=== PATIENT | female | born 1975 | race Asian ===

== ENCOUNTER 2017-10-22 22:35 | Emergency (ER) | payer OTHER ==
[2017-10-22] MEDS ORDERED: RACEPINEPHRINE IH SOL 2.25% 11.25 MG/0.5 ML VIAL NEB ONE (22:40)
[2017-10-22 22:44] VITALS: BMI 29.2
[2017-10-22] MEDS ORDERED: methylPREDNISolone NA SUCC 125 MG/2 ML VIAL ONE (22:47)
[2017-10-22] MEDS ORDERED: methylPREDNISolone NA SUCC 125 MG/2 ML VIAL IVPB ONE (22:47)
[2017-10-22] MEDS ORDERED: MAGNESIUM SULF 50% (8.12 MEQ/2 ML-1 GM VIAL) IVPB ONE (22:48)
[2017-10-22] MEDS ORDERED: FAMOTIDINE 20 MG/50 ML IVPB 20 MG/50 ML MG IVPB ONE (22:48)
[2017-10-22] MEDS ORDERED: SODIUM CHLORIDE 0.9% 500 ML INFUS.BAG IV ONE (22:48)
[2017-10-22] MEDS ORDERED: RACEPINEPHRINE IH SOL 2.25% 11.25 MG/0.5 ML VIAL IH ONE (22:48)
[2017-10-22] MEDS ORDERED: MAGNESIUM SULF 50% (8.12 MEQ/2 ML-1 GM VIAL) ONE (22:52)
--- NOTE | 2017-10-22 22:56 | PDOC ---
History of Present Illness - General History Source: Patient Exam Limitations: No Limitations - History of Present Illness Initial Comments: 10/23/17 00:25 Patient is a 42 year old female with a significant past medical history of Diabetes, who presents to the ED with complaints of difficulty breathing that began just prior to arrival. Patient reports experiencing gradual onset of difficulty breathing that she states occurs every year due to allergies. She reports experiencing associated wheezing, stating she took singular and claritin for shortness of breath with minimal relief, prompting her to come into the ED for further evaluation. Denies chest pain, Coughing. Denies nausea, vomiting. Denies contact with sick individuals, out of state travelling. Denies any other symptoms. Allergies: None Social history: Lives with daughter. No smoking. No alcohol. No illicit drugs. Surgical history: None PMD: dr. Huggins [employer]: Dr. Quiros <Skyler Nelson - Last Filed: 10/23/17 00:26> <Michelle Dunbar - Last Filed: 10/23/17 00:55> - General Chief Complaint: Wheezing Stated Complaint: ASTHMA Time Seen by Provider: 10/22/17 22:41 Past History <Skyler Nelson - Last Filed: 10/23/17 00:26> - Suicide/Smoking/Psychosocial Hx Smoking History: Never smoked Have you smoked in the past 12 months: No Information on smoking cessation initiated: No Hx Alcohol Use: No Drug/Substance Use Hx: No <Michelle Dunbar - Last Filed: 10/23/17 00:55> - Past Medical History Allergies/Adverse Reactions: Allergies Allergy/AdvReac Type Severity Reaction Status Date / Time No Known Allergies Allergy Verified 10/22/17 22:43 Home Medications: Ambulatory Orders Budesonide/Formeterol Fumarate [SYMBICORT 160/4.5mcg -] 1 puff IH DAILY Canagliflozin [Invokana] 100 mg PO DAILY 10/22/17 Fluticasone Propionate [Flonase Allergy Relief] 15.8 ml NS DAILY 10/22/17 Loratadine [Claritin] 10 mg PO DAILY 10/22/17 Montelukast Sodium [Singulair] 10 mg PO DAILY 10/22/17 Olopatadine HCl [Patanol] 1 drop OP DAILY 10/22/17 Salmeterol/Fluticasone [Advair 100Mcg/50Mcg -] 1 puff IH DAILY 10/22/17 Topiramate [Topamax] 25 mg PO DAILY 10/22/17 metFORMIN HCL [Glucophage -] 500 mg PO BID 10/22/17 Albuterol Sulfate Inhaler - [Ventolin Hfa Inhaler -] 1 - 2 inh PO Q4H #1 inhaler 10/23/17 Diphenhydramine HCl [Benadryl -] 25 mg PO Q8H #21 capsule 10/23/17 Epinephrine [Epipen] 0.3 mg IJ ONCE #1 auto.injct 10/23/17 Review of Systems - Review of Systems Able to Perform ROS?: Yes Comments:: 10/23/17 00:25 GENERAL/CONSTITUTIONAL: No fever or chills. No weakness. HEAD, EYES, EARS, NOSE AND THROAT: No change in vision. No ear pain or discharge. No sore throat. CARDIOVASCULAR: +Shortness of breath +wheezing. No chest pain RESPIRATORY: No cough, wheezing, or hemoptysis. GASTROINTESTINAL: No nausea, vomiting, diarrhea or constipation. GENITOURINARY: No dysuria, frequency, or change in urination. MUSCULOSKELETAL: No joint or muscle swelling or pain. No neck or back pain. SKIN: No rash NEUROLOGIC: No headache, vertigo, loss of consciousness, or change in strength/ sensation. ENDOCRINE: No increased thirst. No abnormal weight change. HEMATOLOGIC/LYMPHATIC: No anemia, easy bleeding, or history of blood clots. ALLERGIC/IMMUNOLOGIC: No hives or skin allergy. <Skyler Nelson - Last Filed: 10/23/17 00:26> *Physical Exam - Vital Signs Last Vital Signs Temp Pulse Resp BP Pulse Ox 97.6 F 109 H 26 H 129/78 93 L 10/22/17 22:43 10/22/17 22:43 10/22/17 22:43 10/22/17 22:43 10/22/17 22:43 - Physical Exam Comments: 10/23/17 00:25 GENERAL: Awake, alert, and fully oriented, in no acute distress HEAD: No signs of trauma EYES: PERRLA, EOMI, sclera anicteric, conjunctiva clear ENT: Auricles normal inspection, hearing grossly normal, nares patent, oropharynx clear without exudates. Moist mucosa NECK: Normal ROM, supple, no lymphadenopathy, JVD, or masses LUNGS: +Expiratory wheezes. +Tight lungs. Breath sounds equal. No crackles HEART: Regular rate and rhythm, normal S1 and S2, no murmurs, rubs or gallops ABDOMEN: Soft, nontender, normoactive bowel sounds. No guarding, no rebound. No masses EXTREMITIES: Normal range of motion, no edema. No clubbing or cyanosis. No cords, erythema, or tenderness NEUROLOGICAL: Cranial nerves II through XII grossly intact. Normal speech, normal gait SKIN: Warm, Dry, normal turgor, no rashes or lesions noted. <Skyler Nelson - Last Filed: 10/23/17 00:26> - Vital Signs Last Vital Signs Temp Pulse Resp BP Pulse Ox 97.6 F 109 H 26 H 129/78 93 L 10/22/17 22:43 10/22/17 22:43 10/22/17 22:43 10/22/17 22:43 10/22/17 22:43 <Michelle Dunbar - Last Filed: 10/23/17 00:55> ED Treatment Course - LABORATORY CBC & Chemistry Diagram: 10/22/17 22:49 10/22/17 23:16 - ADDITIONAL ORDERS Additional order review: Laboratory Results 10/22/17 10/22/17 10/22/17 23:16 23:16 22:49 Sodium 139 Cancelled Potassium 3.6 Cancelled Chloride 103 Cancelled Carbon Dioxide 23 Cancelled Anion Gap 13 Cancelled BUN 13 Cancelled Creatinine 0.8 Cancelled Creat Clearance w eGFR > 60 Cancelled Random Glucose 281 H Cancelled Calcium 8.6 Cancelled Total Bilirubin 0.6 Cancelled AST 22 Cancelled ALT 37 Cancelled Alkaline Phosphatase 90 Cancelled Total Protein 6.8 Cancelled Albumin 3.7 Cancelled Serum , Qual Negative 10/22/17 22:49 Sodium Potassium Chloride Carbon Dioxide Anion Gap BUN Creatinine Creat Clearance w eGFR Random Glucose Calcium Total Bilirubin AST ALT Alkaline Phosphatase Total Protein Albumin Serum , Qual Cancelled 10/22/17 22:49 RBC 4.75 MCV 81.7 MCHC 34.8 RDW 14.8 MPV 8.3 Neutrophils % 63.1 Lymphocytes % 27.8 Monocytes % 6.9 Eosinophils % 1.9 Basophils % 0.3 - Medications Given in the ED: ED Medications Discontinued Medications Generic Name Dose Route Start Last Admin Trade Name Freq PRN Reason Stop Dose Admin Diphenhydramine HCl 25 mg 10/22/17 23:18 10/22/17 23:31 Benadryl Injection - IVPB 10/22/17 23:19 25 mg ONCE ONE Administration Epinephrine 1 vial 10/22/17 22:48 10/22/17 22:52 S-2 IH 10/22/17 22:49 1 vial ONCE ONE Administration Famotidine/Sodium Chloride 20 mg in 50 mls @ 100 mls/hr 10/22/17 22:48 22:55 Pepcid 20 Mg Premixed Ivpb - IVPB 10/22/17 23:17 100 mls/hr ONCE ONE Administration Magnesium Sulfate 2 gm 10/22/17 22:48 10/22/17 22:52 Magnesium Sulfate IVPB 10/22/17 22:49 2 gm ONCE ONE Administration Methylprednisolone Sodium Succinate 125 mg 10/22/17 22:47 10/22/17 22:52 Solu-Medrol - IVPB 10/22/17 22:48 125 mg ONCE ONE Administration Sodium Chloride 1,000 ml 10/22/17 22:48 10/22/17 22:52 Normal Saline - IV 10/22/17 22:49 1,000 ml ONCE ONE Administration Terbutaline Sulfate 0.25 mg 10/22/17 23:17 10/22/17 23:31 Brethine Injection - SQ 10/22/17 23:18 0.25 mg ONCE ONE Administration <Skyler Nelson - Last Filed: 10/23/17 00:26> - LABORATORY CBC & Chemistry Diagram: 10/22/17 22:49 10/22/17 23:16 - RADIOLOGY Radiology Studies Ordered: Category Date Time Status CHEST PA & LAT [RAD] Stat Radiology 10/22/17 22:55 Ordered - Medications Given in the ED: ED Medications Discontinued Medications Generic Name Dose Route Start Last Admin Trade Name Freq PRN Reason Stop Dose Admin Epinephrine 1 vial 10/22/17 22:48 10/22/17 22:52 S-2 IH 10/22/17 22:49 1 vial ONCE ONE Administration Magnesium Sulfate 2 gm 10/22/17 22:48 10/22/17 22:52 Magnesium Sulfate IVPB 10/22/17 22:49 2 gm ONCE ONE Administration Methylprednisolone Sodium Succinate 125 mg 10/22/17 22:47 10/22/17 22:52 Solu-Medrol - IVPB 10/22/17 22:48 125 mg ONCE ONE Administration Sodium Chloride 1,000 ml 10/22/17 22:48 10/22/17 22:52 Normal Saline - IV 10/22/17 22:49 1,000 ml ONCE ONE Administration <Michelle Dunbar - Last Filed: 10/23/17 00:55> Medical Decision Making - Medical Decision Making 10/23/17 00:20 Pt is vastly improved after racemic epi; duonebs; terbutaline, solumedrol, Mag sulfate, NSS, pepcid. <Michelle Dunbar - Last Filed: 10/23/17 00:55> *DC/Admit/Observation/Transfer - Attestations Scribe Attestion: 10/23/17 00:25 Documentation prepared by Skyler Nelson, acting as biomedical engineering professor for Michelle Dunbar MD/DO. <Skyler Nelson - Last Filed: 10/23/17 00:26> - Discharge Dispostion Decision to Admit order: No <Michelle Dunbar - Last Filed: 10/23/17 00:55> Diagnosis at time of Disposition: Asthma exacerbation - Discharge Dispostion Disposition: HOME Condition at time of disposition: Stable - Prescriptions Prescriptions: Albuterol Sulfate Inhaler - [Ventolin Hfa Inhaler -] 1 - 2 inh PO Q4H #1 inhaler Diphenhydramine HCl [Benadryl -] 25 mg PO Q8H #21 capsule Epinephrine [Epipen] 0.3 mg IJ ONCE #1 auto.injct - Referrals Referrals: Wade Huggins MD [Primary Care Provider] - - Patient Instructions Printed Discharge Instructions: Allergies, Respiratory (Alternative Therapy), Asthma -- Adult, Diet High in Fruits and Vegetables May Reduce Asthma Exacerbations - Post Discharge Activity Forms/Work/School Notes: Back to Work, Back to School, Parent(s) Back to Work Note
[2017-10-22 22:58] LABS: BASO % 0.3 % (0-2.0); EOS % 1.9 % (0-4.5); HEMATOCRIT 38.8 % (32.4-45.2); HEMOGLOBIN 13.5 GM/dL (10.7-15.3); LYMPH % 27.8 % (8-40); MCH 28.4 pg (25.7-33.7); MCHC 34.8 g/dl (32.0-36.0); MEAN CELL VOLUME 81.7 fl (80-96); MEAN PLT VOLUME 8.3 fl (7.5-11.1); MONO % 6.9 % (3.8-10.2); NEUT % 63.1 % (42.8-82.8); PLATELET COUNT 304 K/MM3 (134-434); RBC 4.75 M/mm3 (3.60-5.2); RDW 14.8 % (11.6-15.6); WHITE BLOOD COUNT 8.7 K/mm3 (4.0-10.0)
[2017-10-22] MEDS ORDERED: TERBUTALINE SULFATE 1 MG/1 ML VIAL SQ ONE ×2 (23:17→23:22)
[2017-10-22 23:47] LABS: ALBUMIN 3.7 g/dl (3.4-5.0); ANION GAP 13 (8-16); BILIRUBIN,TOTAL 0.6 mg/dL (0.2-1.0); BLOOD UREA NITROGEN 13 mg/dL (7-18); CALCIUM 8.6 mg/dL (8.5-10.1); CHLORIDE 103 mmol/L (98-107); CO2 23 mmol/L (21-32); CREATININE 0.8 mg/dL (0.55-1.02); GLUCOSE,RANDOM 281 mg/dL (74-106); POTASSIUM 3.6 mmol/L (3.5-5.1); SGOT/AST 22 U/L (15-37); SGPT/ALT 37 U/L (12-78); SODIUM 139 mmol/L (136-145); TOT PROT 6.8 g/dl (6.4-8.2)
[2017-10-22 23:48] LABS: ALK PHOS 90 U/L (45-117)
[2017-10-23 01:06] VITALS: BP 127/68; PULSE 89; TEMP 98.2
== END 2017-10-23 01:06 | disposition home or self-care (01) ==
LOC: JER 22:35
PROC: 3E0F7GC Introduction of Other Therapeutic Substance into Respiratory Tract, Via Natural or Artificial Opening (ICD-10-PCS; principal; 2017-10-22)
PROC: 3E033GC Introduction of Other Therapeutic Substance into Peripheral Vein, Percutaneous Approach (ICD-10-PCS; 2017-10-22)
PROC: 3E033GC Introduction of Other Therapeutic Substance into Peripheral Vein, Percutaneous Approach (ICD-10-PCS; 2017-10-22)
PROC: 3E023GC Introduction of Other Therapeutic Substance into Muscle, Percutaneous Approach (ICD-10-PCS; 2017-10-22)
PROC: 3E0333Z Introduction of Anti-inflammatory into Peripheral Vein, Percutaneous Approach (ICD-10-PCS; 2017-10-22)
DX: J45.901 Unspecified asthma with (acute) exacerbation (principal)
CPT/HCPCS: 36415; 71046-TC-FY; 80053; 84703; 85025; 99282-25